=== PATIENT | female | born 1965 | race African-American/Black ===

== ENCOUNTER 2018-03-30 04:32 | Inpatient (IN) | payer OTHER ==
[~2018-03-30] VITALS: Ht 170.2 cm; Wt 122.5 kg
[2018-03-30] MEDS ORDERED: SODIUM CHLORIDE 0.9% 500 ML IV ONE (05:30)
[2018-03-30 07:25] LABS: HEMATOCRIT. 34.8 % (36.0-48.0); HEMOGLOBIN. 10.7 g/dL (12.0-16.0); MEAN CORPUSCULAR HEMOGLOBIN 21.2 pg (28.0-32.0); MEAN CORPUSCULAR VOLUME 68.9 fL (81.0-99.0); MEAN PLATELET VOLUME 8.2 fl (7.4-10.4); PLATELET 498 x1000/uL (130-400); RED BLOOD CELL COUNT 5.05 mill/uL (4.2-5.4); RED CELL DISTRIBUTION WIDTH 15.9 % (11.6-14.6)
[2018-03-30 07:27] LABS: CHLORIDE 100 mEq/L (98-107)
[2018-03-30 07:29] LABS: CLARITY URINE CLEAR (CLEAR); COLOR URINE YELLOW (YELLOW); KETONES URINE NEGATIVE (NEGATIVE); LEUKOCYTE ESTERASE URINE NEGATIVE (NEGATIVE); NITRITE URINE NEGATIVE (NEGATIVE); OCCULT BLOOD URINE NEGATIVE (NEGATIVE); PROTEIN URINE NEGATIVE (NEGATIVE); SPECIFIC GRAVITY URINE 1.017 (1.005-1.030); UROBILINOGEN URINE 0.2 E.U./dL (0.2-1.0)
[2018-03-30 07:45] LABS: *BARBITURATES SCREEN URINE NEGATIVE (NEGATIVE); *BENZODIAZEPINES SCREEN URINE NEGATIVE (NEGATIVE)
[2018-03-30 07:46] LABS: *AMPHETAMINES SCREEN URINE NEGATIVE (NEGATIVE); *COCAINE SCREEN URINE NEGATIVE (NEGATIVE); CANNABINOID URINE SCREEN NEGATIVE (NEGATIVE); METHADONE URINE SCREEN NEGATIVE (NEGATIVE); OPIATES URINE SCREEN NEGATIVE (NEGATIVE); PHENCYCLIDINE URINE SCREEN NEGATIVE (NEGATIVE)
[2018-03-30 08:11] LABS: PLATELET ESTIMATE SLIGHTLY INCREASED
[2018-03-30] MEDS ORDERED: LEVOFLOXACIN 750MG PREMIX 150 ML IV ONE (10:45)
[2018-03-30] MEDS ORDERED: DIPHENHYDRAMINE 50MG/ML VIAL IV PRN (11:30)
[2018-03-30] MEDS ORDERED: MAGNESIUM/ALUMINUM HYDROXIDE/SIMETHICONE 30ML UDC PO PRN (11:30)
[2018-03-30] MEDS ORDERED: NA PHOS,M-B/NA PHOS,DI-BA ENEMA 118ML PR PRN (11:30)
[2018-03-30] MEDS ORDERED: ACETAMINOPHEN 325MG TABLET PO PRN (11:30)
[2018-03-30] MEDS ORDERED: CLONIDINE 0.1MG TABLET PO PRN (11:30)
[2018-03-30] MEDS ORDERED: ONDANSETRON HCL 4MG/2ML INJ IV PRN (11:30)
[2018-03-30] MEDS ORDERED: LORAZEPAM 2MG/ML CPJ IV PRN (11:30)
[2018-03-30] MEDS ORDERED: GUAIFENESIN 200MG/10ML SUGAR FREE UDC PO PRN (11:30)
[2018-03-30] MEDS ORDERED: ENOXAPARIN 40MG/0.4ML SYR SUBCUT SCH (11:30)
[2018-03-30] MEDS ORDERED: LEVOFLOXACIN 500MG PREMIX 100 ML IV SCH (11:30)
[2018-03-30] MEDS ORDERED: IPRATROPIUM/ALBUTEROL 0.5-3(2.5)MG/3ML NEB INH PRN (11:30)
[2018-03-30] MEDS ORDERED: MORPHINE SULFATE 2 MG/ML CPJ (NOT FOR IM USE) IV PRN (11:30)
[2018-03-30] MEDS ORDERED: DOCUSATE SODIUM 100MG CAPSULE PO PRN (11:30)
[2018-03-30] MEDS ORDERED: HYDROMORPHONE HCL/PF 2MG/ML CPJ IV PRN (13:30)
[2018-03-30] MEDS ORDERED: CLON-457 MT (13:39)
[2018-03-30] MEDS ORDERED: ASPI-1159 MT (13:39)
[2018-03-30] MEDS ORDERED: GLIP10TA10 MT (13:39)
[2018-03-30] MEDS ORDERED: SIMV10TA6 MT (13:39)
[2018-03-30] MEDS ORDERED: ATEN-42 MT (13:39)
[2018-03-30 13:54] VITALS: BP 114/75
[2018-03-30 14:28] VITALS: BP 114/75
[2018-03-30] MEDS: DEXT 5%/0.45% NACL 1000ML 1,000 ML IV SCH (14:49)
[2018-03-30] MEDS ORDERED: DEXTROSE 50% WATER 50ML SYRINGE IV PRN (15:30)
[2018-03-30] MEDS: DEXTROSE 50% WATER 50ML SYRINGE IV PRN ×2 (15:33→17:39)
[2018-03-30 16:00] VITALS: BP 108/78
[2018-03-30] MEDS: INSULIN LISPRO 100 UNITS/ML SUBCUT SCH ×2 (17:26→20:40)
[2018-03-30] MEDS: BLOOD SUGAR DIAGNOSTIC STRIP TEST SCH ×2 (17:26→20:40)
[2018-03-30 20:00] VITALS: BP 161/77
[2018-03-30] MEDS: ENOXAPARIN 40MG/0.4ML SYR SUBCUT SCH (20:40)
[2018-03-31] VITALS: BP 115/74
[2018-03-31 04:00] VITALS: BP 113/73
[2018-03-31] MEDS: BLOOD SUGAR DIAGNOSTIC STRIP TEST SCH ×4 (06:12→20:54)
[2018-03-31] MEDS: INSULIN LISPRO 100 UNITS/ML SUBCUT SCH ×4 (06:12→20:54)
[2018-03-31 07:06] LABS: HEMATOCRIT. 33.2 % (36.0-48.0); HEMOGLOBIN. 10.5 g/dL (12.0-16.0); MEAN CORPUSCULAR HEMOGLOBIN 21.4 pg (28.0-32.0); MEAN CORPUSCULAR VOLUME 67.7 fL (81.0-99.0); MEAN PLATELET VOLUME 8.6 fl (7.4-10.4); PLATELET 466 x1000/uL (130-400); RED BLOOD CELL COUNT 4.91 mill/uL (4.2-5.4); RED CELL DISTRIBUTION WIDTH 15.7 % (11.6-14.6)
[2018-03-31 08:00] VITALS: BP 101/76
[2018-03-31] MEDS: ENOXAPARIN 40MG/0.4ML SYR SUBCUT SCH ×2 (08:23→21:25)
[2018-03-31] MEDS ORDERED: ASPIRIN 81MG EC TABLET PO SCH (09:00)
[2018-03-31 09:16] LABS: CHLORIDE 100 mEq/L (98-107)
[2018-03-31 09:35] LABS: LDL CHOLESTEROL 81 mg/dL (5-100)
[2018-03-31 09:37] LABS: T4 FREE 1.56 ng/dL (0.76-1.46)
[2018-03-31 09:38] LABS: HDL CHOLESTEROL 30 mg/dL (40-59); PLATELET ESTIMATE INCREASED
[2018-03-31] MEDS: LEVOFLOXACIN 750MG PREMIX 150 ML IV SCH (11:02)
[2018-03-31 12:00] VITALS: BP 137/89
[2018-03-31] MEDS: DEXT 5%/0.45% NACL 1000ML 1,000 ML IV SCH (12:09)
[2018-03-31 16:00] VITALS: BP 103/72
[2018-03-31] MEDS ORDERED: DIATR MEGLU/DIATRIZOATE SOLN 30ML PO SCH (16:30)
[2018-03-31 20:00] VITALS: BP 120/76
[2018-03-31] MEDS ORDERED: IOHEXOL-300 100 ML BOTTLE ONE (20:22)
[2018-03-31] MEDS ORDERED: DIGOXIN 250MCG TABLET PO NR (22:00)
[2018-03-31] MEDS ORDERED: METOPROLOL TARTRATE 25MG TABLET PO NR (22:00)
[2018-03-31] MEDS: HYDROCODONE/ACETAMINOPHEN 5/325MG TABLET PO PRN (22:23)
[2018-04-01] VITALS: BP 107/7
[2018-04-01] MEDS: DEXT 5%/0.45% NACL 1000ML 1,000 ML IV SCH (02:08)
[2018-04-01] MEDS: HYDROCODONE/ACETAMINOPHEN 5/325MG TABLET PO PRN (03:11)
[2018-04-01 04:00] VITALS: BP 119/76
[2018-04-01] MEDS: INSULIN LISPRO 100 UNITS/ML SUBCUT SCH ×2 (06:47→13:00)
[2018-04-01] MEDS: BLOOD SUGAR DIAGNOSTIC STRIP TEST SCH ×2 (06:47→11:59)
[2018-04-01 08:00] VITALS: BP 117/84
[2018-04-01 08:43] LABS: HEMATOCRIT. 31.9 % (36.0-48.0); HEMOGLOBIN. 9.7 g/dL (12.0-16.0); INR 1.1; MEAN CORPUSCULAR HEMOGLOBIN 20.5 pg (28.0-32.0); MEAN CORPUSCULAR VOLUME 67.7 fL (81.0-99.0); MEAN PLATELET VOLUME 8.6 fl (7.4-10.4); PARTIAL THROMBOPLASTIN TIME 35.3 sec (23.4-31.0); PLATELET 479 x1000/uL (130-400); PROTHROMBIN TIME 11.2 sec (9.1-11.1); RED BLOOD CELL COUNT 4.71 mill/uL (4.2-5.4); RED CELL DISTRIBUTION WIDTH 15.7 % (11.6-14.6)
[2018-04-01] MEDS ORDERED: METOPROLOL TARTRATE 25MG TABLET PO SCH (09:00)
[2018-04-01 10:16] LABS: PLATELET ESTIMATE SLIGHTLY INCREASED
[2018-04-01] MEDS: LEVOFLOXACIN 750MG PREMIX 150 ML IV SCH (11:16)
[2018-04-01 12:00] VITALS: BP 114/80
[2018-04-01 14:04] VITALS: BP 114/80
[2018-04-01 16:00] VITALS: BP_SYST 114; BP_SYST 116; BP_SYST 118; BP_DIAS 64; BP_DIAS 79; BP_DIAS 80
== END 2018-04-01 14:49 | disposition home or self-care (01) | DRG 637 ==
LOC: ER 04:32 → 8WST 10:45 → ENRESERV 11:02
PROVIDERS: ADMIT Internal Medicine; ATTEND Internal Medicine
DX: E11.649 Type 2 diabetes mellitus with hypoglycemia without coma (principal); J69.0 Pneumonitis due to inhalation of food and vomit; R18.8 Other ascites; C78.7 Secondary malignant neoplasm of liver and intrahepatic bile duct; C78.00 Secondary malignant neoplasm of unspecified lung; C79.60 Secondary malignant neoplasm of unspecified ovary; I10 Essential (primary) hypertension; D50.9 Iron deficiency anemia, unspecified; Z79.82 Long term (current) use of aspirin; Z79.84 Long term (current) use of oral hypoglycemic drugs; Z90.49 Acquired absence of other specified parts of digestive tract; Z88.0 Allergy status to penicillin
CPT/HCPCS: 36415; 71045; 74177; 76705; 80048; 80061; 80305; 82962; 83605; 84439; 84443; 84484; 93005; 93971; 97162; 99285; J1650; J1815; J1956; J3490; J7040; Q9963; Q9967

== ENCOUNTER 2018-04-05 03:14 | Emergency (ER) | payer OTHER ==
[~2018-04-05] VITALS: Ht 172.7 cm; Wt 125.0 kg
[~2018-04-05 03:14] MED LIST: ATEN-42 MT; CLON-457 MT; GLIP10TA10 MT; SIMV10TA6 MT
[2018-04-05 03:20] VITALS: BP 0/0
[2018-04-05] MEDS ORDERED: EPINEPHRINE 0.1MG/ML (1:10,000) 10ML SYR ONE ×2 (03:34→14:47)
[2018-04-05] MEDS ORDERED: SODIUM BICARBONATE 7.5% 0.9 MEQ/ML 50ML SYR IV ONE (14:47)
[2018-04-05] MEDS ORDERED: CALCIUM CHLORIDE 1GM/10ML SYR IV ONE (14:47)
== END 2018-04-05 03:33 | disposition expired ==
LOC: ER 03:14
DX: I46.9 Cardiac arrest, cause unspecified (principal); I10 Essential (primary) hypertension; E78.00 Pure hypercholesterolemia, unspecified; E11.9 Type 2 diabetes mellitus without complications; R18.8 Other ascites; E66.01 Morbid (severe) obesity due to excess calories; Z68.41 Body mass index [BMI] 40.0-44.9, adult; Z79.82 Long term (current) use of aspirin; Z85.9 Personal history of malignant neoplasm, unspecified; Z88.8 Allergy status to other drugs, medicaments and biological substances
CPT/HCPCS: 31500; 36000; 36556; 92950; 99285; J3490